=== PATIENT | male | born 2000 | race Caucasian/White ===

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

== ENCOUNTER 2021-02-06 13:33 | Emergency (ER) | payer OTHER ==
[2021-02-07 10:07] LABS: SARS-CoV-2 NAA Not Detected (Not Detected)
== END 2021-02-06 14:03 | disposition home or self-care (01) ==
LOC: JVIRT 13:33
DX: R51.9 Headache, unspecified (principal); R05.1 Acute cough; Z20.822 Contact with and (suspected) exposure to COVID-19
CPT/HCPCS: C9803-CS; Q3014-GT; U0003; U0005

== ENCOUNTER 2021-02-13 16:07 | Emergency (ER) | payer OTHER | END 2021-02-13 18:00 | disposition home or self-care (01) | LOC: JVIRT 16:07 | DX: U07.1 COVID-19 (principal) | CPT/HCPCS: C9803; Q3014-GT; U0003; U0005 ==

== ENCOUNTER 2022-03-02 16:02 | Emergency (ER) | payer OTHER ==
[2022-03-02 16:23] VITALS: BP 125/69; PULSE 91; RESP 18; TEMP 98.1; BMI 21.5
[2022-03-02] MEDS ORDERED: KETOROLAC TROMETHAMINE 15 MG/ML VIAL IM ONE (16:29)
[2022-03-02] MEDS ORDERED: KETOROLAC TROMETHAMINE 15 MG/ML VIAL ONE (16:31)
== END 2022-03-02 16:47 | disposition home or self-care (01) ==
LOC: JER 16:02 → JERFT 16:02
PROC: 3E023GC Introduction of Other Therapeutic Substance into Muscle, Percutaneous Approach (ICD-10-PCS; principal; 2022-03-02)
DX: K08.89 Other specified disorders of teeth and supporting structures (principal)
CPT/HCPCS: 99284-25

== ENCOUNTER 2022-11-15 10:17 | Emergency (ER) | payer OTHER ==
[2022-11-15 10:25] VITALS: BP 108/68; PULSE 63; RESP 18; TEMP 98; BMI 20.7
[2022-11-15] MEDS ORDERED: ONDANSETRON 4 MG/2 ML VIAL IVPUSH ONE (10:38)
[2022-11-15] MEDS ORDERED: FAMOTIDINE 20 MG/50 ML IVPB 20 MG/50 ML MG IVPB ONE (10:38)
[2022-11-15] MEDS ORDERED: SODIUM CHLORIDE 0.9% 500 ML INFUS.BAG IV ONE (10:38)
== END 2022-11-15 11:30 | disposition home or self-care (01) ==
LOC: JER 10:17
DX: R11.2 Nausea with vomiting, unspecified (principal); R10.10 Upper abdominal pain, unspecified
CPT/HCPCS: 99283-25